=== PATIENT | male | born 1975 | race Caucasian/White ===

== ENCOUNTER 2021-12-12 15:37 | Emergency (ER) | payer OTHER ==
[~2021-12-12] VITALS: Ht 170.2 cm; Wt 77.3 kg
[2021-12-12 15:43] VITALS: BP 180/105
[2021-12-12] MEDS ORDERED: CEPHALEXIN 500 MG CAP PO ONE (18:25)
[2021-12-12] MEDS ORDERED: IBUPROFEN 600MG TAB PO ONE (18:25)
[2021-12-12] MEDS ORDERED: CEPH500C PO (19:11)
== END 2021-12-12 19:43 | disposition home or self-care (01) ==
LOC: M ED 15:37 → EDBD 15:37 → M ED 19:43
DX: S62.637B Displaced fracture of distal phalanx of left little finger, initial encounter for open fracture (principal); W23.0XXA Caught, crushed, jammed, or pinched between moving objects, initial encounter; Y92.138 Other place on military base as the place of occurrence of the external cause; Y99.1 Military activity